=== PATIENT | female | born 1940 | race Caucasian/White ===

== ENCOUNTER → 2024-01-11 10:52 | Outpatient (REF) | payer OTHER, SELFPAY | LOC: HWWDC 10:52 | PROVIDERS: ATTENDING PHYSICIAN Obstetrics & Gynecology Gynecology; FAMILY PHYSICIAN Family Medicine | DX: Z12.31 Encounter for screening mammogram for malignant neoplasm of breast (principal) | CPT/HCPCS: 77063; 77067 ==

== ENCOUNTER 2024-02-21 14:43 | Emergency (ER) | payer OTHER, SELFPAY ==
[2024-02-21 14:52] VITALS: BP 132/97
[2024-02-21 16:19] VITALS: BP 129/95
--- NOTE | 2024-02-21 17:05 | ED.GENMED ---
History of Present Illness
General
Chief Complaint: Cardiac Symptoms
Time Seen by Provider: 02/21/24 16:28
History of Present Illness
History of Present Illness:
Patient presents to the emergency department with 1 month of intermittent episodes of chest 'vibrations'. Notes that this can occur at any time and it feels as if it is a cell phone vibrating on her chest. Endorses mild dyspnea while this is
occurring.
Past History
Past History
ED Past Medical History: HTN, Hypercholesterolemia and Other (Prior rectal bleeding)
ED Past Surgical History: Gynecological
Social History
Tobacco: Non-smoker
Alcohol: Occasional
Drug: None
Personal:
Living: with family
Employment: Retired
Family History
Family History: Hypertension
Phy Exam
Physical Exam
Physical Exam:
GENERAL APPEARANCE: NAD, well developed/ well nourished
EYES lids/conjunctiva normal
EARS/NOSE/THROAT Mucous membranes moist, uvula midline without oral pharyngeal erythema, exudate or swelling
HEAD/NECK normocephalic atraumatic, neck is supple.
RESPIRATORY respiratory effort normal, speaks in full sentences, no accessory muscle use. Lungs clear to auscultation without rhonchi, wheezes, rales
CARDIAC tachycardia, regular rhythm, no extremity edema
ABDOMINAL Soft, ND/NT. No pulsatile masses on exam, rebound tenderness,
MUSCLES/EXTREMITIES No abnormal range of motion, no swelling.
SKIN Warm, pink and dry. No rashes
NEUROLOGICAL Speech is clear and appropriate. Normal level of consciousness. 5/5 strength in all extremities.
PSYCH Normal mood and affect. Judgement/competence is appropriate
Course
Orders/Labs/Results
Orders:
Orders
02/21/24 14:53
EKG [Electrocardiogram (*1)] Urgent
Reason for Study: Palpitations
EKG- Treatment ONCE
02/21/24 17:04
CR Chest - 2 Views Urgent
Comment:
Reason For Exam: chest discomfort
Pulse Ox/cont/shift [RESP] Stat
Quantity: 1
02/21/24 17:12
Basic Metabolic Panel Urgent
Complete Blood Count/With Diff Urgent
D-Dimer Urgent
Magnesium Urgent
02/21/24 17:57
Comprehensive Metabolic Panel Urgent
Troponin I Urgent
Abnormal Lab Results
02/21/24 02/21/24
17:12 17:57
MCH 31.1 H pg
(27.0-31.0)
Glucose 103 H mg/dl 106 H mg/dl
(70-99) (70-99)
Calcium 10.3 H mg/dl
(8.4-10.2)
02/21/24 17:12
02/21/24 17:57
Vital Signs
Initial and Last Documented VS:
Initial Vital Signs
Temp Pulse Resp BP Pulse Ox
98.8 F 110 17 132/97 96
02/21/24 14:52 02/21/24 14:52 02/21/24 14:52 02/21/24 14:52 02/21/24 14:52
Last Documented Vital Signs
Temp Pulse Resp BP Pulse Ox
98.8 F 89 18 130/85 96
02/21/24 14:52 02/21/24 18:30 02/21/24 18:53 02/21/24 18:00 02/21/24 18:53
*Critical Care Note
Total Time (30-74mins, 75-104mins- exclusive of procedures): Not Applicable
ED Attending Note
ED Attending Note
ED Attending Note:
Patient with intermittent episodes of vibrating in her chest. She is very well-appearing without any symptoms currently. Labs, EKG and x-ray are reassuring. She is having palpitations possibly PVCs, PACs or atrial fibrillation. Noncapture during
her stay in the emergency department. Instructed her to call her home planning consultant salesperson in the morning for close follow-up and consideration of long-term telemetry.
-
Portions of this chart may have been created with voice recognition software.� Occasional wrong word or��sound alike� substitutions may have occurred due to the inherent limitations of voice recognition software.
Discharge Plan
Departure
Patient Disposition: Home (Routine Discharge)
Date of Disposition: 02/21/24
Time of Disposition: 18:43
Patient with high blood pressure during this ER visit?: No
Discharge Problem:
Heart palpitations
Instructions: Heart Palpitations
Prescriptions:
No Action
rosuvastatin 5 MG tablet
5 mg PO QPM
calcium carbonate [Caltrate 600] 600 MG tablet
600 mg PO BID
zolpidem 10 MG tablet
10 mg PO HS
cholecalciferol (vitamin D3) [Vitamin D3] 1,000 UNIT tablet
1,000 unit PO BID
ciprofloxacin HCl 500 MG tablet
500 mg PO BID Qty: 10 0RF
Referrals:
Raji Banks DO [Active] -
Kevin Araiza MD [Family Provider] -
Interventions
Interventions:
*Risk Screen - Suicide Last Done: 02/21/24 17:15
*General Assessment Last Done: 02/21/24 17:15
*Neglect/Abuse Screening Last Done: 02/21/24 17:15
*ED COVID-19 Vaccine History Last Done: 02/21/24 17:15
ED- Pulmonary Assessment Last Done: 02/21/24 17:14
ED- Cardiac Assessment Last Done: 02/21/24 17:14
Discharge Date and Time
Print Language: SETS[place]
[2024-02-21 17:08] VITALS: BP 129/84
[2024-02-21 17:18] LABS: % Basophils 0.7 % (0-2); % Eosinophils 0.7 % (0-6); % Immature Granulocytes 0.2 % (0-0.5); % Lymphocytes 32.6 % (20.5-51.1); % Monocytes 7.5 % (1.7-9.3); % Neutrophils 58.3 % (42.2-75.2); Absolute Basophils 0.1 10^3/uL (0-0.2); Absolute Eosinophils 0.1 10^3/uL (0-0.7); Absolute Lymphocytes 2.6 10^3/uL (1.2-3.4); Absolute Monocytes 0.6 10^3/uL (0.1-0.6); Absolute Neutrophils 4.7 10^3/uL (1.4-6.5); Hematocrit 40.7 % (37.0-47.0); Hemoglobin 14.5 g/dL (12.0-16.0); Mean Corp Hgb Conc. 35.6 g/dL (33.0-37.0); Mean Corpuscular Hgb 31.1 pg (27.0-31.0); Mean Corpuscular Volume 87.3 fL (81.0-99.0); Mean Platelet Volume 9.2 fL (7.4-10.4); Nucleated Red Blood Cells % 0 %; Platelet Count 296 10^3/uL (130-400); Red Blood Cell Count 4.66 10^6/uL (4.20-5.40); Red Cell Dist. Width 14.5 % (11.5-14.5); White Blood Cell Count 8.1 10^3/uL (4.8-10.8)
[2024-02-21 17:34] LABS: D-Dimer 0.49 ug/mlFEU (0.00-0.50)
[2024-02-21 17:43] LABS: Blood Urea Nitrogen 13 mg/dl (7-17); Calcium 10.3 mg/dl (8.4-10.2); Carbon Dioxide 23 mmol/L (22-30); Chloride 104 mmol/L (98-107); Glucose 103 mg/dl (70-99); Magnesium 2.2 mg/dl (1.6-2.3); Sodium 140 mmol/L (135-145); eGFR > 60.00
[2024-02-21 17:52] VITALS: BP 130/88
[2024-02-21 18:00] VITALS: BP 130/85
[2024-02-21 18:24] LABS: ALT (SGPT) 18 U/L (0-35); AST (SGOT) 29 U/L (14-36); Albumin 4.3 g/dl (3.5-5.0); Alkaline Phosphatase 84 U/L (38-126); Blood Urea Nitrogen 13 mg/dl (7-17); Calcium 10.1 mg/dl (8.4-10.2); Carbon Dioxide 23 mmol/L (22-30); Chloride 106 mmol/L (98-107); Glucose 106 mg/dl (70-99); Potassium 4.1 mmol/L (3.5-5.1); Sodium 141 mmol/L (135-145); Total Bilirubin 0.8 mg/dl (0.2-1.3); Total Protein 6.7 g/dl (6.3-8.2); eGFR > 60.00
[2024-02-21 18:33] LABS: Troponin I < 0.012 ng/ml
== END 2024-02-21 18:56 | disposition home or self-care (01) ==
LOC: EMR 14:43
PROVIDERS: EMERGENCY PHYSICIAN Emergency Medicine; FAMILY PHYSICIAN Family Medicine
DX: R00.2 Palpitations (principal)
CPT/HCPCS: 99285; 71046; 80048; 80053; 83735; 84484; 85025; 85379; 93005

== ENCOUNTER → 2024-02-24 08:11 | Outpatient (REF) | payer OTHER, SELFPAY | LOC: RAD 08:11 | PROVIDERS: ATTENDING PHYSICIAN Physician Assistant; FAMILY PHYSICIAN Family Medicine | DX: M62.838 Other muscle spasm (principal) | CPT/HCPCS: 76705 ==

== ENCOUNTER → 2024-03-02 13:41 | Outpatient (REF) | payer OTHER, SELFPAY | LOC: HWRCS 13:41 | PROVIDERS: ATTENDING PHYSICIAN Family Medicine | DX: I35.8 Other nonrheumatic aortic valve disorders (principal) | CPT/HCPCS: 93306 ==

== ENCOUNTER → 2025-03-26 13:33 | Outpatient (REF) | payer OTHER, SELFPAY | LOC: MRI 3T 13:33 | PROVIDERS: ATTENDING PHYSICIAN Anesthesiology; FAMILY PHYSICIAN Family Medicine | DX: M54.16 Radiculopathy, lumbar region (principal) | CPT/HCPCS: 72148 ==